=== PATIENT | female | born 1985 | race African-American/Black ===

== ENCOUNTER 2016-11-06 01:32 | Emergency (ER) | payer OTHER ==
[~2016-11-06] VITALS: Ht 165.1 cm; Wt 44.5 kg
[~2016-11-06 01:32] MED LIST: DOXYCYCLINE HY100 M1 PO
== END 2016-11-06 03:30 | disposition left against medical advice (07) ==
LOC: CED 01:32
DX: Z53.21 Procedure and treatment not carried out due to patient leaving prior to being seen by health care provider (principal)